=== PATIENT | female | born 1960 | race Caucasian/White ===

== ENCOUNTER 2022-01-18 07:58 | Outpatient (CLI) | payer BC | END 2022-01-18 07:59 | disposition home or self-care (01) | LOC: CSHMAMMO 07:58 | PROVIDERS: ATTEND Family Medicine | DX: Z12.31 Encounter for screening mammogram for malignant neoplasm of breast (principal) | CPT/HCPCS: 77063; 77067 ==

== ENCOUNTER 2023-03-08 10:16 | Outpatient (CLI) | payer BC | END 2023-03-08 10:17 | disposition home or self-care (01) | LOC: CSHMAMMO 10:16 | PROVIDERS: ATTEND Family Medicine | DX: Z12.31 Encounter for screening mammogram for malignant neoplasm of breast (principal) | CPT/HCPCS: 77063; 77067 ==

== ENCOUNTER 2024-05-13 08:27 | Outpatient (CLI) | payer BC | END 2024-05-13 08:28 | disposition home or self-care (01) | LOC: CSHMAMMO 08:27 | PROVIDERS: ATTEND Family Medicine | DX: Z12.31 Encounter for screening mammogram for malignant neoplasm of breast (principal) | CPT/HCPCS: 77063; 77067 ==